=== PATIENT | male | born 1985 | race Two or more races ===

== ENCOUNTER 2024-09-08 13:32 | Emergency (ER) | payer OTHER ==
[~2024-09-08] VITALS: Ht 180.3 cm; Wt 90.9 kg
[~2024-09-08 13:32] MED LIST: ACET-2123 PO; IBUP-1493 PO; LEVO-72 PO
[2024-09-08] MEDS ORDERED: LORA10TA7 PO (13:40)
[2024-09-08] MEDS ORDERED: FAMO20 PO (13:40)
[2024-09-08] MEDS ORDERED: ALBU18HF12 IH ×2 (13:40→15:58)
[2024-09-08] MEDS ORDERED: FLUT1BLS19 IH ×2 (13:40→15:58)
[2024-09-08] MEDS: IPRATROPIUM BROMIDE 0.5 MG/2.5 ML NEB SOLUTION NEB ONE ×2 (14:03→14:43)
[2024-09-08] MEDS: ALBUTEROL SULFATE 2.5 MG/0.5 ML NEB SOLUTION NEB ONE (14:03)
[2024-09-08 14:04] VITALS: PULSE 71; RESP 16; O2SAT 100
[2024-09-08 14:07] VITALS: PULSE 71; RESP 16; O2SAT 100
[2024-09-08] MEDS: EPINEPHrine 1:1,000 [1 MG/ML] VIAL SQ ONE (14:35)
[2024-09-08] MEDS: ALBUTEROL SULFATE 2.5 MG/0.5 ML 5 ML NEB SOLUTION NEB ONE (14:43)
[2024-09-08 14:44] VITALS: PULSE 83; RESP 16; O2SAT 99
[2024-09-08] MEDS: GuaiFENesin/D-METHORPHAN [SUGAR-FREE] 200-20MG/10 ML SYRUP UDCUP PO ONE (14:46)
[2024-09-08] MEDS: PredniSONE 20 MG TABLET PO ONE (14:47)
[2024-09-08] MEDS: LORATADINE 10 MG TABLET PO ONE (14:47)
[2024-09-08] MEDS ORDERED: PRED-554 PO (15:58)
[2024-09-08] MEDS ORDERED: GUAIFDM PO (15:58)
[2024-09-08 16:15] VITALS: BP 139/76; PULSE 71; RESP 16; TEMP 98.2; O2SAT 96
== END 2024-09-08 16:31 | disposition home or self-care (01) ==
LOC: EMS 13:48
DX: J45.901 Unspecified asthma with (acute) exacerbation (principal); F17.210 Nicotine dependence, cigarettes, uncomplicated; Z88.0 Allergy status to penicillin; Z91.013 Allergy to seafood; Z79.51 Long term (current) use of inhaled steroids
CPT/HCPCS: 99284; 71045; 94640; 96372; J0171; J7512; 94644; J7613

== ENCOUNTER 2024-09-18 23:13 | Inpatient (IN) | payer OTHER ==
[~2024-09-18] VITALS: Ht 180.3 cm; Wt 92.7 kg
[~2024-09-18 23:13] MED LIST changes: -ACET-2123 PO; +ALBU18HF12 IH; +FAMO20 PO; +FLUT1BLS19 IH; +GUAIFDM PO; -IBUP-1493 PO; -LEVO-72 PO; +LORA10TA7 PO; +PRED-554 PO
[2024-09-19] VITALS (16 sets, daily range): BP systolic 105–129; BP diastolic 53–68; PULSE 78–99; RESP 18–30; TEMP 97.5–99.7; O2SAT 93–100
[2024-09-19] LABS: BASOPHILS % (AUTO) 0.9 % (0.0-2.0); EOSINOPHILS % (AUTO) 3.5 % (1.0-6.0); HEMATOCRIT 43.9 % (41-53); HEMOGLOBIN 14.7 g/dL (13.5-17.5); LYMPHOCYTES # (AUTO) 1.9 K/uL (1.0-4.8); MEAN CORPUSCULAR HEMOGLOBIN 31.9 pg (26.0-34.0); MEAN CORPUSCULAR HGB CONC 33.6 G/dL (31.0-37.0); MEAN CORPUSCULAR VOLUME 95 fL (80-100); MONOCYTES # (AUTO) 0.8 K/uL (0.1-1.0); MONOCYTES % (AUTO) 14.9 % (2.0-9.0); NEUTROPHILS # (AUTO) 2.3 K/uL (1.8-7.7); NEUTROPHILS % (AUTO) 44.7 % (40.0-70.0); PLATELET COUNT (AUTO) 328 K/uL (150-450); RED BLOOD CELL COUNT(AUTO) 4.63 MIL/uL (4.50-5.90); RED CELL DISTRIBUTION WIDTH 14.4 % (11.5-14.5); WHITE BLOOD COUNT (AUTO) 5.1 K/uL (4.5-11.0)
[2024-09-19] MEDS: MethylPREDNISolone SOD SUCC 125 MG/2 ML VIAL IVP ONE
[2024-09-19 00:07] LABS: COVID AG,FIA SOURCE NASAL SWAB
[2024-09-19 00:08] LABS: ANION GAP 5 mmol/L (8-16); CALCIUM, TOTAL 8.6 mg/dL (8.8-10.5); CARBON DIOXIDE 30 mmol/L (22-29); CHLORIDE 104 mmol/L (98-107); GLOMERULAR FILTR. RATE CALC > 60 mL/min (>60); GLUCOSE,RANDOM 103 mg/dL (70-110); POTASSIUM 3.9 mmol/L (3.5-5.1); SODIUM SERUM 139 mmol/L (136-145); UREA NITROGEN, BLOOD 17 mg/dL (7-18)
[2024-09-19] MEDS: ALBUTEROL SULFATE 2.5 MG/0.5 ML 5 ML NEB SOLUTION NEB ONE ×2 (00:09→02:58)
[2024-09-19] MEDS: IPRATROPIUM BROMIDE 0.5 MG/2.5 ML NEB SOLUTION NEB ONE ×3 (00:09→02:59)
[2024-09-19] MEDS: ALBUTEROL SULFATE 2.5 MG/0.5 ML NEB SOLUTION NEB ONE (00:11)
[2024-09-19 00:23] LABS: B-TYPE NATRIURETIC PEPTIDE < 5 pg/mL (0-100); CREATINE KINASE, TOTAL ONLY 1907 U/L (39-308); TROPONIN I-HIGH SENSITIVITY 5 ng/L (<76)
[2024-09-19 00:28] LABS: SARS-COV2 (COVID) ANTIGEN,FIA Negative (Negative)
[2024-09-19 00:29] LABS: INFLUENZA TYPE A NEGATIVE FOR TYPE A (NEGATIVE); INFLUENZA TYPE B NEGATIVE FOR TYPE B (NEGATIVE)
[2024-09-19] MEDS ORDERED: 0.9% SODIUM CHLORIDE 15 ML NEB SOLUTION NEB ONE (02:53)
[2024-09-19] MEDS ORDERED: PRED-554 PO (05:09)
[2024-09-19] MEDS ORDERED: ALBU18HF12 IH (05:09)
[2024-09-19] MEDS: SODIUM CHLORIDE 0.9% 1,000 ML IV ONE (05:46)
[2024-09-19] MEDS: ALBUTEROL SULFATE 2.5 MG/0.5 ML NEB SOLUTION NEB PRN (12:06)
[2024-09-19] MEDS: ACETAMINOPHEN 325 MG TABLET PO PRN ×2 (12:22→21:47)
[2024-09-19] MEDS ORDERED: ZOLPIDEM TARTRATE 5 MG TABLET PO PRN (15:15)
[2024-09-19] MEDS ORDERED: MORPHINE SULFATE 2 MG/ML SYRINGE IVP PRN (15:15)
[2024-09-19] MEDS ORDERED: HYDROCODONE/ACETAMINOPHEN 5-325 MG TABLET PO PRN (15:15)
[2024-09-19] MEDS ORDERED: ALBUTEROL SULFATE 2.5 MG/0.5 ML NEB SOLUTION NEB PRN (15:15)
[2024-09-19] MEDS ORDERED: ONDANSETRON HCL 4 MG/2 ML VIAL IVP PRN (15:15)
[2024-09-19] MEDS ORDERED: MAGNESIUM HYDROXIDE SUSPENSION 30 ML UDCUP PO PRN (15:15)
[2024-09-19] MEDS ORDERED: BISACODYL 10 MG RECTAL RECTAL SUPPOSITORY PR PRN (15:15)
[2024-09-19] MEDS ORDERED: SODIUM CHLORIDE 0.9% 500 ML IV ONE (16:44)
[2024-09-19] MEDS: BENZONATATE 100 MG CAPSULE PO SCH (16:52)
[2024-09-19] MEDS: HEPARIN SODIUM,PORCINE 5,000 UNITS/ML VIAL SQ SCH (16:53)
[2024-09-19] MEDS: AZITHROMYCIN 500 MG/NS 250 ML IV SCH (16:54)
[2024-09-19] MEDS: MethylPREDNISolone SOD SUCC 125 MG/2 ML VIAL IVP SCH (17:00)
[2024-09-19] MEDS: IPRATROPIUM BROMIDE 0.5 MG/2.5 ML NEB SOLUTION NEB PRN (17:28)
[2024-09-19] MEDS: DOCUSATE SODIUM 100 MG CAPSULE PO SCH (20:14)
[2024-09-19] MEDS: GuaiFENesin SR 600 MG ER TABLET PO SCH (20:14)
[2024-09-19] MEDS: ALBUTEROL SULFATE 2.5 MG/0.5 ML NEB SOLUTION NEB SCH (20:35)
[2024-09-19] MEDS: IPRATROPIUM BROMIDE 0.5 MG/2.5 ML NEB SOLUTION NEB SCH (20:35)
[2024-09-19] MEDS: GuaiFENesin/D-METHORPHAN [SUGAR-FREE] 200-20MG/10 ML SYRUP UDCUP PO PRN (23:58)
[2024-09-20] VITALS (16 sets, daily range): BP systolic 114–133; BP diastolic 61–84; PULSE 62–97; RESP 16–20; TEMP 97.5–98.6; O2SAT 94–100
[2024-09-20] MEDS: LORATADINE 10 MG TABLET PO PRN (00:03)
[2024-09-20 07:16] LABS: BASOPHILS % (AUTO) 0.2 % (0.0-2.0); EOSINOPHILS % (AUTO) 0 % (1.0-6.0); HEMATOCRIT 42.2 % (41-53); HEMOGLOBIN 14.3 g/dL (13.5-17.5); LYMPHOCYTES # (AUTO) 0.5 K/uL (1.0-4.8); LYMPHOCYTES % (AUTO) 4.7 % (22.0-44.0); MEAN CORPUSCULAR HGB CONC 33.9 G/dL (31.0-37.0); MEAN CORPUSCULAR VOLUME 94 fL (80-100); MONOCYTES # (AUTO) 0.3 K/uL (0.1-1.0); NEUTROPHILS # (AUTO) 9.9 K/uL (1.8-7.7); PLATELET COUNT (AUTO) 361 K/uL (150-450); RED BLOOD CELL COUNT(AUTO) 4.47 MIL/uL (4.50-5.90); RED CELL DISTRIBUTION WIDTH 14.5 % (11.5-14.5); WHITE BLOOD COUNT (AUTO) 10.8 K/uL (4.5-11.0)
[2024-09-20 07:24] LABS: NEUTROPHILS % (AUTO) 92.1 % (40.0-70.0)
[2024-09-20 07:27] LABS: CALCIUM, TOTAL 8.6 mg/dL (8.8-10.5); CHLORIDE 103 mmol/L (98-107); CREATININE 0.72 mg/dL (0.60-1.30); GLOMERULAR FILTR. RATE CALC > 60 mL/min (>60); GLUCOSE,RANDOM 137 mg/dL (70-110); POTASSIUM 4.1 mmol/L (3.5-5.1); SODIUM SERUM 136 mmol/L (136-145); UREA NITROGEN, BLOOD 9 mg/dL (7-18)
[2024-09-20 07:35] LABS: ANION GAP 9 mmol/L (8-16); CARBON DIOXIDE 24 mmol/L (22-29)
[2024-09-20] MEDS: PANTOPRAZOLE SODIUM 40 MG DR TABLET PO SCH (08:00)
[2024-09-20 14:47] LABS: APPEARANCE,URINE CLEAR (CLEAR); BILIRUBIN,URINE NEGATIVE (NEGATIVE); COLOR,URINE LIGHT YELLOW (YELLOW); GLUCOSE, URINE (UA) NEGATIVE (NEGATIVE); KETONES,URINE NEGATIVE (NEGATIVE); LEUKOCYTE ESTERASE ,URINE NEGATIVE (NEGATIVE); NITRATE,URINE NEGATIVE (NEGATIVE); OCCULT BLOOD,URINE NEGATIVE (NEGATIVE); PH,URINE 6.5 (5.0-8.0); PROTEIN,URINE NEGATIVE (NEGATIVE); SPECIFIC GRAVITIY, URINE 1.019 (1.003-1.030); UROBILINOGEN,URINE <=1.0 mg/dL (<=1.0)
[2024-09-20 14:57] LABS: ALCOHOL, URINE DRUG SCREEN NEGATIVE (NEGATIVE); AMPHET/METH SCREEN,URINE NEGATIVE (NEGATIVE); BARBITURATE SCREEN, URINE NEGATIVE (NEGATIVE); BENZODIAZEPINES SCREEN,URINE NEGATIVE (NEGATIVE); CANNABINOID SCREEN,URINE NEGATIVE (NEGATIVE); COCAINE SCREEN,URINE NEGATIVE (NEGATIVE); METHADONE SCREEN, URINE NEGATIVE (NEGATIVE); OPIATE SCREEN,URINE NEGATIVE (NEGATIVE); PHENCYCLIDINE SCREEN,URINE NEGATIVE (NEGATIVE)
[2024-09-20 14:59] LABS: PH,URINE DRUG SCREEN 6.5 (5.0-8.0)
[2024-09-20] MEDS: SODIUM CHLORIDE 0.9% 1,000 ML IV ONE (15:23)
[2024-09-21] VITALS (12 sets, daily range): BP systolic 115–138; BP diastolic 68–80; PULSE 75–101; RESP 16–20; TEMP 97.3–98.2; O2SAT 94–100
[2024-09-21 06:55] LABS: BASOPHILS % (AUTO) 0.1 % (0.0-2.0); EOSINOPHILS % (AUTO) 0 % (1.0-6.0); HEMATOCRIT 42.4 % (41-53); HEMOGLOBIN 14.1 g/dL (13.5-17.5); LYMPHOCYTES # (AUTO) 0.8 K/uL (1.0-4.8); LYMPHOCYTES % (AUTO) 5.7 % (22.0-44.0); MEAN CORPUSCULAR HEMOGLOBIN 31.5 pg (26.0-34.0); MEAN CORPUSCULAR HGB CONC 33.1 G/dL (31.0-37.0); MEAN CORPUSCULAR VOLUME 95 fL (80-100); MONOCYTES # (AUTO) 0.2 K/uL (0.1-1.0); MONOCYTES % (AUTO) 1.4 % (2.0-9.0); NEUTROPHILS # (AUTO) 12.4 K/uL (1.8-7.7); PLATELET COUNT (AUTO) 365 K/uL (150-450); RED BLOOD CELL COUNT(AUTO) 4.47 MIL/uL (4.50-5.90); RED CELL DISTRIBUTION WIDTH 14.7 % (11.5-14.5); WHITE BLOOD COUNT (AUTO) 13.4 K/uL (4.5-11.0)
[2024-09-21 07:02] LABS: NEUTROPHILS % (AUTO) 92.8 % (40.0-70.0)
[2024-09-21 07:03] LABS: RBC MORPHOLOGY COMMENT NORMAL RBC MORPH
[2024-09-21 07:14] LABS: ANION GAP 6 mmol/L (8-16); CARBON DIOXIDE 28 mmol/L (22-29); CHLORIDE 101 mmol/L (98-107); SODIUM SERUM 135 mmol/L (136-145)
[2024-09-21 07:43] LABS: CALCIUM, TOTAL 8.5 mg/dL (8.8-10.5); GLOMERULAR FILTR. RATE CALC > 60 mL/min (>60); GLUCOSE,RANDOM 177 mg/dL (70-110); UREA NITROGEN, BLOOD 12 mg/dL (7-18)
[2024-09-21 07:56] LABS: CREATINE KINASE, TOTAL ONLY 1503 U/L (39-308)
[2024-09-21] MEDS: SODIUM CHLORIDE 0.9% 1,000 ML IV ONE (14:18)
[2024-09-22 02:59] VITALS: PULSE 68; RESP 18; O2SAT 96
[2024-09-22 04:46] VITALS: BP 124/78; PULSE 71; RESP 20; TEMP 97.5; O2SAT 95
[2024-09-22 07:06] LABS: BASOPHILS % (AUTO) 0.6 % (0.0-2.0); EOSINOPHILS % (AUTO) 0.3 % (1.0-6.0); HEMATOCRIT 44.7 % (41-53); HEMOGLOBIN 15.1 g/dL (13.5-17.5); LYMPHOCYTES # (AUTO) 3.1 K/uL (1.0-4.8); LYMPHOCYTES % (AUTO) 28.6 % (22.0-44.0); MEAN CORPUSCULAR HEMOGLOBIN 31.9 pg (26.0-34.0); MEAN CORPUSCULAR HGB CONC 33.7 G/dL (31.0-37.0); MEAN CORPUSCULAR VOLUME 95 fL (80-100); MONOCYTES % (AUTO) 9.4 % (2.0-9.0); NEUTROPHILS # (AUTO) 6.6 K/uL (1.8-7.7); NEUTROPHILS % (AUTO) 61.1 % (40.0-70.0); PLATELET COUNT (AUTO) 364 K/uL (150-450); RED BLOOD CELL COUNT(AUTO) 4.72 MIL/uL (4.50-5.90); RED CELL DISTRIBUTION WIDTH 14.7 % (11.5-14.5); WHITE BLOOD COUNT (AUTO) 10.8 K/uL (4.5-11.0)
[2024-09-22 07:17] LABS: ANION GAP 7 mmol/L (8-16); CALCIUM, TOTAL 8.4 mg/dL (8.8-10.5); CARBON DIOXIDE 27 mmol/L (22-29); CHLORIDE 103 mmol/L (98-107); CREATININE 0.98 mg/dL (0.60-1.30); GLOMERULAR FILTR. RATE CALC > 60 mL/min (>60); GLUCOSE,RANDOM 96 mg/dL (70-110); POTASSIUM 3.6 mmol/L (3.5-5.1); SODIUM SERUM 137 mmol/L (136-145); UREA NITROGEN, BLOOD 12 mg/dL (7-18)
[2024-09-22 08:00] VITALS: PULSE 72; PULSE 86; RESP 16; O2SAT 97; O2SAT 98; O2SAT 99
[2024-09-22 08:09] VITALS: BP 118/84; PULSE 71; RESP 18; TEMP 97.7; O2SAT 96
[2024-09-22 08:12] LABS: CREATINE KINASE, TOTAL ONLY 859 U/L (39-308)
[2024-09-22] MEDS: PredniSONE 20 MG TABLET PO SCH (08:29)
[2024-09-22] MEDS ORDERED: PRED-554 PO (09:59)
[2024-09-22] MEDS ORDERED: BENZ-227 PO (09:59)
[2024-09-22 11:15] VITALS: BP 115/80; PULSE 72; RESP 18; TEMP 97.8; O2SAT 97
== END 2024-09-22 11:30 | disposition home or self-care (01) | DRG 133 ==
LOC: EMS 23:13 → EDH 09-19 07:01 → 5S 09-19 10:35 → 6S 09-21 10:30
PROVIDERS: ADMIT Internal Medicine; ATTEND Internal Medicine
DX: J96.01 Acute respiratory failure with hypoxia (principal); J45.901 Unspecified asthma with (acute) exacerbation; M62.82 Rhabdomyolysis; Z20.822 Contact with and (suspected) exposure to COVID-19; K21.9 Gastro-esophageal reflux disease without esophagitis; F17.200 Nicotine dependence, unspecified, uncomplicated; K59.00 Constipation, unspecified; D72.829 Elevated white blood cell count, unspecified; Z88.0 Allergy status to penicillin
CPT/HCPCS: 71045; 80048; 80307; 81003; 82550; 83880; 84484; 85025; 85379; 87040; 87804; 93005; 94060; 94640; 94644; 94645; 99285; G0378; J0456; J1644; J2919; J7030; J7040; 36415-L1; 36415-TC; J7613